=== PATIENT | male | born 1945 | race Hispanic/Latino ===

== ENCOUNTER 2016-07-21 19:27 | Inpatient (IN) | payer MEDICARE ==
[2016-07-21] MEDS ORDERED: ATIVAN ONE (19:31)
[2016-07-21] MEDS ORDERED: KEPPRA 1,000 MG/NS 0.75% 100ML 1,000 MG/100 ML BAG IV ONE (19:38)
[2016-07-21] MEDS ORDERED: ATIVAN IV NR (19:45)
[2016-07-21] MEDS ORDERED: NACL 0.9% 1000 ML 1,000 ML IV ONE (19:54)
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
[2016-07-21 20:05] LABS: Urine Drugs of Abuse Note Disclamer
[2016-07-21 20:09] LABS: Hematocrit 47.7 % (35.5-45.6); Hemoglobin 15.1 gm/dl (11.8-15.2); Mean Corpuscular HGB Conc 32 % (32-34); Mean Corpuscular Hemoglobin 29 pg (28-32); Mean Corpuscular Volume 93 fl (84-94); Platelet Count 153 K/mm3 (140-440); Red Blood Count 5.14 M/mm3 (3.65-5.03); Red Cell Distribution Width 14.5 % (13.2-15.2)
[2016-07-21 20:19] LABS: INR 0.94 (0.87-1.13)
[2016-07-21 20:20] LABS: Partial Thromboplastin Time 27.5 Sec. (24.2-36.6)
[2016-07-21 20:34] LABS: Creatine Kinase MB 5.3 ng/mL (0.0-4.0)
[2016-07-21 20:35] LABS: Anion Gap 21 mmol/L; BUN/Creatinine Ratio 8.66; Blood Urea Nitrogen 13 mg/dL (9-20); Calcium 7.9 mg/dL (8.4-10.2); Carbon Dioxide 21 mmol/L (22-30); Chloride 102.8 mmol/L (98-107); Creatine Kinase 153 units/L (55-170); Glucose 150 mg/dL (75-100); Potassium 4.2 mmol/L (3.6-5.0); Sodium 141 mmol/L (137-145)
[2016-07-21 20:42] LABS: Blastocytes % (Manual) 0 %
[2016-07-21 20:43] LABS: Anisocytosis 1+; Diff Status Complete; Ovalocytes Few; Platelet Estimate Consistent w Auto
--- NOTE | 2016-07-21 22:04 | Cat Scan Report ---
FINAL REPORT PROCEDURE: CT HEAD/BRAIN WO CON TECHNIQUE: Computerized tomography of the head was performed without contrast material. HISTORY: multiple seizures COMPARISON: 09/03/2013 FINDINGS: Skull and scalp: Normal. Paranasal sinuses: Normal. Ventricles and subarachnoid spaces: Normal. Cerebrum: No evidence of hemorrhage, acute infarction or mass . Cerebellum and brainstem: No evidence of hemorrhage, acute infarction or mass. Vasculature: Normal. Comments: None. IMPRESSION: There is no acute intracranial process.
[2016-07-21] MEDS ORDERED: CALCIUM GLUCONATE 1,000 MG in NACL 0.9% 100 ML IV ONE (22:30)
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
[2016-07-21] MEDS ORDERED: ZOFRAN IV PRN (23:40)
[2016-07-21] MEDS ORDERED: D5/0.45NS 1,000 ML IV SCH (23:45)
[2016-07-22 05:27] LABS: Hematocrit 41.3 % (35.5-45.6); Hemoglobin 13.3 gm/dl (11.8-15.2); Mean Corpuscular HGB Conc 32 % (32-34); Mean Corpuscular Hemoglobin 29 pg (28-32); Mean Corpuscular Volume 92 fl (84-94); Platelet Count 141 K/mm3 (140-440); Red Blood Count 4.52 M/mm3 (3.65-5.03); Red Cell Distribution Width 14.3 % (13.2-15.2); White Blood Count 12.9 K/mm3 (4.5-11.0)
[2016-07-22 07:44] LABS: Albumin 3.6 g/dL (3.9-5); Albumin/Globulin Ratio 1.7 %; BUN/Creatinine Ratio 8.66; Bilirubin,Total 0.4 mg/dL (0.1-1.2); Calcium 7.8 mg/dL (8.4-10.2); Potassium 4.2 mmol/L (3.6-5.0); Total Protein 5.7 g/dL (6.3-8.2)
--- NOTE | 2016-07-22 08:08 | Admit Criteria Form ---
Admission Criteria Documentation: SEIZURE Clinical Indications for Admission to Inpatient Care (Place 'X' for any and all applicable criteria): Admission is indicated for seizure and ANY ONE of the following(1)(2)(3)(4)(5): [ ]I. Inpatient admission required rather than observation care (Also use Seizure: Observation Care Criteria as appropriate) because of ANY ONE of the following: [ ]a) Altered mental status that is severe or persistent [ ]b) New focal neurologic deficit that is severe or persistent [ ]c) Metabolic disorder (eg, hypoglycemia, hyponatremia) that is severe or persistent [ ]d) Recurrent seizure [ ]e) Outpatient antiseizure regimen cannot be established (eg , patient cannot tolerate medication, initiation requires inpatient care) [ ]f) Need for ongoing intravenous infusion of antiseizure medication [ ]g) Cardiac arrhythmias of immediate concern [ ]h) Cerebral bleeding, hydrocephalus, or vasospasm monitoring (14) [ ]i) Increased intracranial pressure or cerebral edema monitoring (15) [ ]j) Other treatment or monitoring requiring inpatient admission [ X]II. Status epilepticus [A] or repetitive seizures not controlled with emergent treatment (6)(8) [ ]III. Brain disorder (eg, tumor, edema, and hydrocephalus) that requiring monitoring or intervention available only at inpatient level of care. [ ]IV. Brain insult (eg, severe trauma, stroke, drug toxicity, or withdrawal) that requires monitoring or intervention available only at inpatient level of care (10)(11) Extended stay beyond goal length of stay may be needed for (22) [ ]a) Complications of status epilepticus [ ]b) Refractory status epilepticus [ ]c) Etiology-specific therapy for conditions such as SPEAKER MOUNTER infection, head injury,eclampsia, severe metabolic abnormalities, and brain tumor [ ]d) Residual neurologic damage, [ ]e) Initiation of significant change to anticonvulsant treatment [ ]f) Older patients (65 years or older) [ ]g) Patient requiring intubation (eg, to protect airway) The original [employer] content created by [employer] has been revised. The portions of the content which have been revised are identified through the use of italic text or in bold, and [facility] has neither reviewed nor approved the modified material. All other unmodified content is copyright [facility] [employer]. Please see references footnoted in the original [facility] edition 2016 Admission Criteria Met: Yes
--- NOTE | 2016-07-22 08:35 | XRay Report ---
AP CHEST: HISTORY: Short of breath Compared to 09/03/13. There is subtle opacity at the left lung base most consistent with scarring or segmental atelectasis. Otherwise, the lungs are clear. No large infiltrate, pleural effusion or pneumothorax. Heart and mediastinal structures remain within normal limits. IMPRESSION: Left lower lobe segmental atelectasis or scarring. No acute process appreciated.
[2016-07-22] MEDS ORDERED: KEPPRA 750 MG in D5W 100 ML IV SCH (10:00)
[2016-07-22] MEDS ORDERED: PROTONIX IV SCH (10:00)
[2016-07-22] MEDS ORDERED: TYLENOL PO PRN (10:54)
--- NOTE | 2016-07-22 11:57 | Progress Note ---
Hospitalist Physical - Constitutional Vitals: Temp Pulse Resp BP Pulse Ox 98.1 F 87 24 120/66 96 07/22/16 08:05 07/22/16 08:05 07/22/16 08:05 07/22/16 08:05 07/22/16 08:05 Results - Labs CBC & Chem 7: 07/22/16 04:34 07/22/16 04:34 Labs: Laboratory Last Values WBC 12.9 K/mm3 (4.5-11.0) H 07/22/16 04:34 RBC 4.52 M/mm3 (3.65-5.03) 07/22/16 04:34 Hgb 13.3 gm/dl (11.8-15.2) 07/22/16 04:34 Hct 41.3 % (35.5-45.6) D 07/22/16 04:34 MCV 92 fl (84-94) 07/22/16 04:34 MCH 29 pg (28-32) 07/22/16 04:34 MCHC 32 % (32-34) 07/22/16 04:34 RDW 14.3 % (13.2-15.2) 07/22/16 04:34 Plt Count 141 K/mm3 (140-440) 07/22/16 04:34 Lymph # Supervisor Chassis Assembly 07/21/16 19:50 Add Manual Diff Complete 07/21/16 19:50 Total Counted 100 07/21/16 19:50 Seg Neuts % (Manual) 45.0 % (40.0-70.0) 07/21/16 19:50 Band Neutrophils % 2.0 % 07/21/16 19:50 Lymphocytes % (Manual) 44.0 % (13.4-35.0) H 07/21/16 19:50 Reactive Lymphs % (Man) 0 % 07/21/16 19:50 Monocytes % (Manual) 5.0 % (0.0-7.3) 07/21/16 19:50 Eosinophils % (Manual) 3.0 % (0.0-4.3) 07/21/16 19:50 Basophils % (Manual) 1.0 % (0.0-1.8) 07/21/16 19:50 Metamyelocytes % 0 % 07/21/16 19:50 Myelocytes % 0 % 07/21/16 19:50 Promyelocytes % 0 % 07/21/16 19:50 Blast Cells % 0 % 07/21/16 19:50 Nucleated RBC % Not Reportable 07/21/16 19:50 Seg Neutrophils # Man 5.4 K/mm3 (1.8-7.7) 07/21/16 19:50 Band Neutrophils # 0.2 K/mm3 07/21/16 19:50 Lymphocytes # (Manual) 5.3 K/mm3 (1.2-5.4) 07/21/16 19:50 Abs React Lymphs (Man) 0.0 K/mm3 07/21/16 19:50 Monocytes # (Manual) 0.6 K/mm3 (0.0-0.8) 07/21/16 19:50 Eosinophils # (Manual) 0.4 K/mm3 (0.0-0.4) 07/21/16 19:50 Basophils # (Manual) 0.1 K/mm3 (0.0-0.1) 07/21/16 19:50 Metamyelocytes # 0.0 K/mm3 07/21/16 19:50 Myelocytes # 0.0 K/mm3 07/21/16 19:50 Promyelocytes # 0.0 K/mm3 07/21/16 19:50 Blast Cells # 0.0 K/mm3 07/21/16 19:50 WBC Morphology Not Reportable 07/21/16 19:50 Hypersegmented Neuts Not Reportable 07/21/16 19:50 Hyposegmented Neuts Not Reportable 07/21/16 19:50 Hypogranular Neuts Not Reportable 07/21/16 19:50 Smudge Cells Not Reportable 07/21/16 19:50 Toxic Granulation Not Reportable 07/21/16 19:50 Toxic Vacuolation Not Reportable 07/21/16 19:50 Dohle Bodies Not Reportable 07/21/16 19:50 Pelger-Huet Anomaly Not Reportable 07/21/16 19:50 Tierra Rods Not Reportable 07/21/16 19:50 Platelet Estimate Consistent w auto 07/21/16 19:50 Clumped Platelets Not Reportable 07/21/16 19:50 Plt Clumps, EDTA Not Reportable 07/21/16 19:50 Large Platelets Not Reportable 07/21/16 19:50 Giant Platelets Not Reportable 07/21/16 19:50 Platelet Satelliting Not Reportable 07/21/16 19:50 Plt Morphology Comment Not Reportable 07/21/16 19:50 RBC Morphology Not Reportable 07/21/16 19:50 Dimorphic RBCs Not Reportable 07/21/16 19:50 Polychromasia Not Reportable 07/21/16 19:50 Hypochromasia Not Reportable 07/21/16 19:50 Poikilocytosis Not Reportable 07/21/16 19:50 Anisocytosis 1+ 07/21/16 19:50 Microcytosis Not Reportable 07/21/16 19:50 Macrocytosis Not Reportable 07/21/16 19:50 Spherocytes Not Reportable 07/21/16 19:50 Pappenheimer Bodies Not Reportable 07/21/16 19:50 Sickle Cells Not Reportable 07/21/16 19:50 Target Cells Not Reportable 07/21/16 19:50 Tear Drop Cells Not Reportable 07/21/16 19:50 Ovalocytes Few 07/21/16 19:50 Helmet Cells Not Reportable 07/21/16 19:50 Castorena-[place] Bodies Not Reportable 07/21/16 19:50 [place] Rings Not Reportable 07/21/16 19:50 [place] Cells Not Reportable 07/21/16 19:50 Bite Cells Not Reportable 07/21/16 19:50 Crenated Cell Not Reportable 07/21/16 19:50 Elliptocytes Not Reportable 07/21/16 19:50 Acanthocytes (Spur) Not Reportable 07/21/16 19:50 Rouleaux Not Reportable 07/21/16 19:50 Hemoglobin C Crystals Not Reportable 07/21/16 19:50 Schistocytes Not Reportable 07/21/16 19:50 Malaria parasites Not Reportable 07/21/16 19:50 Raghu Bodies Not Reportable 07/21/16 19:50 Hem Pathologist Commnt No 07/21/16 19:50 PT 12.5 Sec. (12.2-14.9) 07/21/16 19:50 INR 0.94 (0.87-1.13) 07/21/16 19:50 APTT 27.5 Sec. (24.2-36.6) 07/21/16 19:50 Sodium 143 mmol/L (137-145) 07/22/16 04:34 Potassium 4.2 mmol/L (3.6-5.0) 07/22/16 04:34 Chloride 106.0 mmol/L (98-107) 07/22/16 04:34 Carbon Dioxide 23 mmol/L (22-30) 07/22/16 04:34 Anion Gap 18 mmol/L 07/22/16 04:34 BUN 13 mg/dL (9-20) 07/22/16 04:34 Creatinine 1.5 mg/dL (0.8-1.5) 07/22/16 04:34 Estimated GFR 46 ml/min 07/22/16 04:34 BUN/Creatinine Ratio 8.66 % 07/22/16 04:34 Glucose 131 mg/dL (75-100) H 07/22/16 04:34 Hemoglobin A1c 7.8 % (4-6) H 07/22/16 04:34 Calcium 7.8 mg/dL (8.4-10.2) L 07/22/16 04:34 Magnesium 2.00 mg/dL (1.7-2.3) 07/21/16 19:50 Total Bilirubin 0.40 mg/dL (0.1-1.2) 07/22/16 04:34 AST 15 units/L (5-40) 07/22/16 04:34 ALT 10 units/L (7-56) 07/22/16 04:34 Alkaline Phosphatase 72 units/L (35-129) 07/22/16 04:34 Total Creatine Kinase 153 units/L (55-170) 07/21/16 19:50 CK-MB (CK-2) 5.3 ng/mL (0.0-4.0) H 07/21/16 19:50 CK-MB (CK-2) Rel Index 3.4 (0-4) 07/21/16 19:50 Troponin T < 0.010 ng/mL (0.00-0.029) 07/21/16 19:50 Total Protein 5.7 g/dL (6.3-8.2) L 07/22/16 04:34 Albumin 3.6 g/dL (3.9-5) L 07/22/16 04:34 Albumin/Globulin Ratio 1.7 % 07/22/16 04:34 TSH 2.490 mlU/mL (0.270-4.200) 07/22/16 04:34 Urine Opiates Screen Presumptive negative 07/21/16 19:52 Urine Methadone Screen Presumptive negative 07/21/16 19:52 Ur Barbiturates Screen Presumptive negative 07/21/16 19:52 Ur Phencyclidine Scrn Presumptive negative 07/21/16 19:52 Ur Amphetamines Screen Presumptive negative 07/21/16 19:52 U Benzodiazepines Scrn Presumptive negative 07/21/16 19:52 Urine Cocaine Screen Presumptive negative 07/21/16 19:52 U Marijuana (THC) Screen Presumptive negative 07/21/16 19:52 Drugs of Abuse Note Disclamer 07/21/16 19:52
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
--- NOTE | 2016-07-22 12:57 | Discharge Summary ---
Providers - Providers Date of Admission: 07/21/16 22:19 Date of discharge: 07/22/16 Attending physician: LILIA MAYORGA 07/21/16 23:39 Consult to Physician [CONS] Routine Consulting Provider: ARVIND LUCIANO Reason For Exam: status epilepticus Place consult to:: Hesham WESTON Notified:: Hesham WESTON Primary care physician: BOILER RELINER Hospitalization Condition: Fair Disposition: STILL A PATIENT - Discharge Diagnoses (1) Breakthrough seizure Status: Acute Exam - Constitutional Vitals: Temp Pulse Resp BP Pulse Ox 98.1 F 87 24 120/66 96 07/22/16 08:05 07/22/16 08:05 07/22/16 08:05 07/22/16 08:05 07/22/16 08:05 Plan Activity: no driving until cleared by PCP Diet: low fat, low cholesterol, low salt Additional Instructions: 1. Follow up with primary care physician in one week. 2. No driving for 6 months and until cleared by physician. Follow up with: PRIMARY CAREMD [Primary Care Provider] - 3-5 Days Prescriptions: levETIRAcetam [Keppra TAB] 1,000 mg PO QDAY #30 tablet
[2016-07-22 17:19] VITALS: BP 120/58
[2016-07-22] MEDS ORDERED: HEPARIN SUB-Q SCH (22:00)
== END 2016-07-22 20:14 | disposition home or self-care (01) | DRG 101 ==
LOC: ED 19:27 → 4A 22:19
PROVIDERS: ADMIT Internal Medicine; ATTEND Internal Medicine
DX: G40.909 Epilepsy, unspecified, not intractable, without status epilepticus (principal); R65.10 Systemic inflammatory response syndrome (SIRS) of non-infectious origin without acute organ dysfunction; E83.51 Hypocalcemia; R73.9 Hyperglycemia, unspecified; Z82.49 Family history of ischemic heart disease and other diseases of the circulatory system; Z91.19 Patient's noncompliance with other medical treatment and regimen; Z90.49 Acquired absence of other specified parts of digestive tract
CPT/HCPCS: 36415; 70450; 71010; 80048; 80053; 80307; 82040; 82550; 82553; 83036; 83735; 84443; 84484; 85007; 85025; 85027; 85610; 85730; 87040; 96361; 96365; 96375; C9113; J0610; J1953; J2060; J7030

== ENCOUNTER 2017-11-26 06:50 | Emergency (ER) | payer MEDICARE ==
[2017-11-26 07:55] VITALS: BP 150/76
[2017-11-26 09:25] LABS: Basophils % (Auto) 0.3 % (0.0-1.8); Eosinophils # (Auto) 0.1 K/mm3 (0.0-0.4); Eosinophils % (Auto) 0.5 % (0.0-4.3); Lymphocytes % (Auto) 17.6 % (13.4-35.0); Mean Corpuscular HGB Conc 34 % (32-34); Mean Corpuscular Hemoglobin 33 pg (28-32); Mean Corpuscular Volume 100 fl (84-94); Monocytes # (Auto) 0.5 K/mm3 (0.0-0.8); Platelet Count 187 K/mm3 (140-440); Red Blood Count 4.22 M/mm3 (3.65-5.03); Red Cell Distribution Width 15.9 % (13.2-15.2)
[2017-11-26 09:46] LABS: Albumin 4.2 g/dL (3.9-5); Calcium 8.5 mg/dL (8.4-10.2)
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
[2017-11-26] MEDS ORDERED: TYLENOL #3 PO ONE (11:19)
[2017-11-26 12:12] LABS: Bilirubin,Urine NEG (Negative); Blood,Urine NEG (Negative); Color,Urine Yellow (Yellow); Mucus,Urine FEW /HPF; Protein,Urine <15 mg/dL mg/dL (Negative)
--- NOTE | 2017-11-26 12:15 | Cat Scan Report ---
FINAL REPORT EXAM: CT HEAD/BRAIN WO CON HISTORY: fall with head injury COMPARISON: CT of the head performed on 07/21/2016 TECHNIQUE: Multiple contiguous axial images were obtained from the skullbase to the vertex without administration of IV contrast. FINDINGS: There age related cerebral cortical atrophy. There no parenchymal hemorrhage or extra-axial fluid collection. There is no mass or mass effect. There is no acute territorial infarct. There are scattered areas of decreased attenuation in the subcortical and periventricular white matter, likely due to chronic microvascular ischemic disease. The ventricles are midline. The subarachnoid spaces and basilar cisterns are clear. There is no skull fracture. The paranasal sinuses and mastoid air cells are clear. The bilateral orbits are intact. IMPRESSION: No acute intracranial abnormality. Chronic microvascular ischemic disease in the subcortical and periventricular white matter.
== END 2017-11-26 13:37 ==
LOC: ED 06:50
DX: S09.90XA Unspecified injury of head, initial encounter (principal); M79.1 Myalgia; W01.0XXA Fall on same level from slipping, tripping and stumbling without subsequent striking against object, initial encounter; Y93.89 Activity, other specified; Y92.89 Other specified places as the place of occurrence of the external cause; Y99.8 Other external cause status
CPT/HCPCS: 36415; 70450; 80053; 81001; 85025

== ENCOUNTER 2019-01-04 10:32 | Emergency (ER) | payer MEDICARE ==
[2019-01-04] MEDS ORDERED: KEPPRA PO ONE (12:05)
[2019-01-04] MEDS ORDERED: FIORICET PO ONE (12:05)
[2019-01-04 12:39] LABS: Basophils % (Auto) 0.5 % (0.0-1.8); Eosinophils # (Auto) 0.1 K/mm3 (0.0-0.4); Eosinophils % (Auto) 0.7 % (0.0-4.3); Hematocrit 40.9 % (35.5-45.6); Hemoglobin 13.5 gm/dl (11.8-15.2); Lymphocytes # (Auto) 1.5 K/mm3 (1.2-5.4); Lymphocytes % (Auto) 16.5 % (13.4-35.0); Mean Corpuscular HGB Conc 33 % (32-34); Mean Corpuscular Volume 98 fl (84-94); Monocytes # (Auto) 0.5 K/mm3 (0.0-0.8); Monocytes % (Auto) 5.2 % (0.0-7.3); Platelet Count 178 K/mm3 (140-440); Red Cell Distribution Width 14.5 % (13.2-15.2)
[2019-01-04 12:49] LABS: Calcium 8.2 mg/dL (8.4-10.2)
--- NOTE | 2019-01-04 12:58 | Cat Scan Report ---
CT HEAD WITHOUT CONTRAST INDICATION : headache. TECHNIQUE: Axial imaging performed from the skull apex through the skull base without the use of con trast. Sagittal and coronal reformatted images. All CT scans at this location are performed using C T dose reduction for ALARA by means of automated exposure control. COMPARISON: 11/26/2017 FINDINGS: Parenchyma: No acute intracranial hemorrhage or parenchymal abnormality. Ventricles: Ventricles are normal in size and appear symmetric. Bones: No acute osseous abnormality. Sinuses: Sinuses and mastoid air cells are clear. Soft tissues: Soft tissues including the orbits appear normal. IMPRESSION: No acute abnormality. Signer Name: Horace Nails Jr, MD Signed: 01/04/2019 12:53 PM Workstation Name: [id number]
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
[2019-01-04 16:13] VITALS: BP 130/60
== END 2019-01-04 16:14 | disposition home or self-care (01) ==
LOC: ED 10:32
DX: G40.909 Epilepsy, unspecified, not intractable, without status epilepticus (principal); N18.3 Chronic kidney disease, stage 3 (moderate); R73.9 Hyperglycemia, unspecified; Z79.899 Other long term (current) drug therapy; Z87.891 Personal history of nicotine dependence
CPT/HCPCS: 36415; 70450; 80048; 85025; 99285